=== PATIENT | female | born 1965 | race Caucasian/White ===

== ENCOUNTER 2020-02-08 08:34 | Emergency (ER) | payer SELFPAY ==
[~2020-02-08] VITALS: Ht 160 cm; Wt 59.0 kg
[2020-02-08 08:35] VITALS: BP_SYST 96
[2020-02-08] MEDS ORDERED: FOLIC ACID 1 MG, THIAMINE HCL 100 MG, MAGNESIUM SULFATE 1 GM, MVI 10 ML in NACL 0.9% 1,... IV ONE (08:45)
[2020-02-08] MEDS ORDERED: THIAMINE HCL 100 MG/ML VIAL ONE (09:14)
[2020-02-08] MEDS ORDERED: MVI 10 ML VIAL IV ONE (09:14)
[2020-02-08] MEDS ORDERED: MAGNESIUM SULFATE 1 GM/2 ML VIAL ONE (09:14)
[2020-02-08] MEDS ORDERED: FOLIC ACID 5 MG/ML VIAL IV ONE (09:14)
[2020-02-08 09:49] LABS: BASOPHILS % (AUTO) 0.6 % (0.0-2.0); EOSINOPHILS # (AUTO) 0.1 K/uL (0.0-0.4); EOSINOPHILS % (AUTO) 2.3 % (0.0-4.0); HEMATOCRIT 41.9 % (36-48); HEMOGLOBIN 14.2 g/dL (12.0-16.0); LYMPHOCYTES # (AUTO) 1.8 K/uL (1.0-5.5); MEAN CORPUSCULAR HEMOGLOBIN 33 pg (27-31); MEAN CORPUSCULAR HGB CONC 34 % (32-36); MEAN CORPUSCULAR VOLUME 97 fL (79.0-98.0); MONOCYTES # (AUTO) 0.3 K/uL (0.0-1.0); MONOCYTES % (AUTO) 6.3 % (1.7-9.3); NEUTROPHILS # (AUTO) 2.2 K/uL (1.8-7.7); NEUTROPHILS % (AUTO) 50.8 % (40.0-70.0); PLATELET COUNT (AUTO) 220 K/uL (130-430); RED BLOOD CELL COUNT(AUTO) 4.31 MIL/uL (4.2-6.2); RED CELL DISTRIBUTION WIDTH 12.2 % (9.0-15.0); WHITE BLOOD COUNT (AUTO) 4.4 K/uL (4.8-10.8)
[2020-02-08 10:00] LABS: ANION GAP 12 (5-15); CALCIUM 7.9 mg/dL (8.4-11.0); CHLORIDE 110 mmol/L (98-107); GLUCOSE 88 mg/dL (70-99); POTASSIUM 3.9 mmol/L (3.5-5.1); SODIUM SERUM 146 mmol/L (136-145); UREA NITROGEN, BLOOD 16 mg/dL (8-21)
[2020-02-08 10:01] LABS: GFR AFRICAN AMERICAN 95 mL/min (>90)
[2020-02-08 10:08] LABS: ALANINE AMINOTRANSFERASE 27 U/L (12-78); ALBUMIN 3.7 g/dL (3.4-4.8); ALCOHOL, BLOOD 357 mg/dL (<10); ASPARTATE AMINOTRANSFERASE 20 U/L (10-37); TOTAL BILIRUBIN 0.1 mg/dL (0.0-1.0)
[2020-02-08 10:14] LABS: ACETAMINOPHEN < 1 ug/mL (1-30)
[2020-02-08 11:14] VITALS: BP_SYST 96
== END 2020-02-08 11:14 | disposition home or self-care (01) ==
LOC: SED 08:34
DX: F10.129 Alcohol abuse with intoxication, unspecified (principal); Y90.8 Blood alcohol level of 240 mg/100 ml or more
CPT/HCPCS: 36415; 36600; 70450; 71045; 72125; 80053; 82140; 82550; 82803; 84484; 85025; 85610; 85730; 93005; 96365; 99285; G0480; G0481; G0482; J3411; J3475; J3490